=== PATIENT | male | born 1950 | race Caucasian/White ===

== ENCOUNTER 2023-06-25 06:54 | Day surgery (SDC) | payer MEDICARE, BC ==
[2023-06-25] MEDS: Dextrose 5%-0.45% NaCl 1,000 ML IV SCH (07:20)
[2023-06-25] MEDS ORDERED: Midazolam 1 MG/ML 2 ML SDV ONE (08:02)
[2023-06-25] MEDS ORDERED: fentaNYL 100 MCG/2 ML SDV ONE (08:02)
[2023-06-25] MEDS: fentaNYL 100 MCG/2 ML SDV IV ONE ×2 (08:10)
[2023-06-25] MEDS: Midazolam 1 MG/ML 2 ML SDV IV ONE ×5 (08:10→08:17)
== END 2023-06-25 09:35 | disposition home or self-care (01) ==
LOC: DL.ENDO 06:54
PROVIDERS: ATTEND Internal Medicine Gastroenterology
DX: Z12.11 Encounter for screening for malignant neoplasm of colon (principal); K57.30 Diverticulosis of large intestine without perforation or abscess without bleeding; A04.8 Other specified bacterial intestinal infections; R79.89 Other specified abnormal findings of blood chemistry; D69.6 Thrombocytopenia, unspecified; E78.5 Hyperlipidemia, unspecified; F41.1 Generalized anxiety disorder; F32.A Depression, unspecified; I10 Essential (primary) hypertension; E66.9 Obesity, unspecified; Z68.32 Body mass index [BMI] 32.0-32.9, adult
CPT/HCPCS: J2250; J3010; J7042

== ENCOUNTER 2023-08-12 05:12 | Day surgery (SDC) | payer MEDICARE, BC ==
[2023-08-12] MEDS ORDERED: Midazolam 1 MG/ML 2 ML SDV IV ONE (05:13)
[2023-08-12] MEDS ORDERED: fentaNYL 100 MCG/2 ML SDV IV ONE (05:13)
[2023-08-12] MEDS: Dextrose 5%-0.45% NaCl 1,000 ML IV SCH (05:44)
[2023-08-12] MEDS ORDERED: Midazolam 1 MG/ML 2 ML SDV ONE (06:12)
[2023-08-12] MEDS ORDERED: fentaNYL 100 MCG/2 ML SDV ONE (06:12)
[2023-08-12] MEDS: fentaNYL 100 MCG/2 ML SDV IV ONE ×3 (06:27→06:29)
[2023-08-12] MEDS: Midazolam 1 MG/ML 2 ML SDV IV ONE (06:28)
== END 2023-08-12 08:14 | disposition home or self-care (01) ==
LOC: DL.ENDO 05:12
PROVIDERS: ATTEND Internal Medicine Gastroenterology
DX: K29.50 Unspecified chronic gastritis without bleeding (principal); K74.60 Unspecified cirrhosis of liver; E66.09 Other obesity due to excess calories; I10 Essential (primary) hypertension; G47.00 Insomnia, unspecified; Z68.32 Body mass index [BMI] 32.0-32.9, adult
CPT/HCPCS: 43239; 87077; J2250; J3010; J7042

== ENCOUNTER 2024-01-28 08:52 | Emergency (ER) | payer BC, MEDICARE ==
[2024-01-28 09:14] LABS: BASOPHILS PERCENT AUTO 0.7 % (0.0-1.0); EOSINOPHILS PERCENT AUTO 0.9 % (1.0-3.0); HEMATOCRIT 39.2 % (40.0-54.0); HEMOGLOBIN 13.5 g/dL (14.0-18.0); LYMPHOCYTES PERCENT AUTO 10.4 % (20.5-50.1); MEAN CORPUSCULAR HGB CONC 34.4 g/dL (33.0-35.0); MEAN CORPUSCULAR VOLUME 98.7 fL (80-100); MONOCYTES PERCENT AUTO 8.7 % (2-8); NEUTROPHILS PERCENT AUTO 79.3 % (42.2-75.2); PLATELET COUNT,PLT 91 10^3/uL (150-450); RED BLOOD CELL COUNT 3.97 10^6/uL (4.6-6.2); WHITE BLOOD CELL COUNT,WBC 5.7 10^3/uL (5.0-10.0)
[2024-01-28 09:29] LABS: INR 1.1 (0.9-1.2); PROTHROMBIN TIME 11.3 SEC (9.0-12.0)
[2024-01-28 09:36] LABS: A/G RATIO 1.2; ALANINE AMINOTRANSFERASE,ALT 51 U/L (16-63); ALBUMIN 3.5 g/dL (3.4-5.0); ALKALINE PHOSPHATASE 44 U/L (46-116); ANION GAP 10.1 mEq/L (7-13); ASPARTATE AMNIOTRANSFERASE,AST 30 U/L (15-37); BILIRUBIN TOTAL 0.8 mg/dL (0.2-1.0); BLOOD UREA NITROGEN,BUN 18 mg/dL (7-18); BUN/CREATININE RATIO 11.5 (No establ ref range); CALCIUM 9.3 mg/dL (8.5-10.1); CARBON DIOXIDE,CO2 31 mmol/L (21-32); CHLORIDE,CL 106 mmol/L (98-107); CREATININE 1.56 mg/dL (0.70-1.30); GLUCOSE RANDOM 116 mg/dL (70-99); MAGNESIUM 1.6 mg/dL (1.8-2.4); POTASSIUM,K 4.1 mmol/L (3.5-5.1); PROTEIN TOTAL,TP 6.5 g/dL (6.4-8.2); SODIUM,NA 143 mmol/L (136-145)
[2024-01-28 09:37] LABS: ESTIMATED GFR 47 mL/min (>=60); ETHANOL BLOOD MEDICAL < 3 mg/dL (0)
[2024-01-28 09:42] LABS: LACTIC ACID 1.2 mmol/L (0.4-2.0)
[2024-01-28 09:52] LABS: APPEARANCE,URINE CLEAR (CLEAR); BILIRUBIN,URINE NEGATIVE (NEGATIVE); COLOR,URINE YELLOW (YELLOW); GLUCOSE,URINE NEGATIVE (NEGATIVE); KETONES,URINE NEGATIVE (NEGATIVE); LEUKOCYTE ESTERASE,URINE NEGATIVE (NEGATIVE); NITRITE,URINE NEGATIVE (NEGATIVE); OCCULT BLOOD,URINE NEGATIVE (NEGATIVE); PH,URINE 5.5 (5.0-9.0); PROTEIN,URINE NEGATIVE (NEGATIVE); UROBILINOGEN,URINE 0.2 mg/dL (0.2-1.0)
[2024-01-28 09:53] LABS: AMPHETAMINES,URINE NEGATIVE (NEGATIVE); BARBITURATES,URINE NEGATIVE (NEGATIVE); BENZODIAZEPINE,URINE NEGATIVE (NEGATIVE); MDMA (ECSTASY), URINE NEGATIVE (NEGATIVE); METHADONE,URINE NEGATIVE (NEGATIVE); METHAMPHETAMINES,URINE NEGATIVE (NEGATIVE); OPIATES,URINE NEGATIVE (NEGATIVE); OXYCODONE,URINE NEGATIVE (NEGATIVE); PHENCYCLIDINE,URINE NEGATIVE (NEGATIVE); TCA,URINE NEGATIVE (NEGATIVE)
[2024-01-28] MEDS: Magnesium Sulfate/Water Premix 2 GM in Premix Bag 1 BAG IV ONE (10:02)
[2024-01-28] MEDS: Dexamethasone 4 MG/ML SDV IVPUSH ONE (10:51)
== END 2024-01-28 12:48 ==
LOC: DL.ED 08:52
DX: J20.8 Acute bronchitis due to other specified organisms (principal); I12.9 Hypertensive chronic kidney disease with stage 1 through stage 4 chronic kidney disease, or unspecified chronic kidney disease; N18.9 Chronic kidney disease, unspecified; E83.42 Hypomagnesemia; R55 Syncope and collapse; Z79.899 Other long term (current) drug therapy
CPT/HCPCS: 36415; 70450; 71045; 72125; 80053; 80305; 80307; 81003; 82947; 83605; 83735; 83880; 84484; 85025; 85379; 85610; 87040; 87081; 87428; 87430; 93005; 96365; 96375; 99285; J1100; J3475